=== PATIENT | female | born 1940 | race Caucasian/White ===

== ENCOUNTER 2018-10-26 09:02 | Emergency (ER) | payer MEDICARE ==
[~2018-10-26] VITALS: Ht 170.2 cm; Wt 77.1 kg
[~2018-10-26 09:02] MED LIST: ACET325 PO; ASPI325 PO; ATEN50 PO; Atenolol50 MG PO; BUDE6HFA INH; CIPR500 PO; DOCU100 PO; FOSI10 PO; GUAI600T33 PO; HYDACE10B PO; HYDCHL25 PO; IRON325 MG PO; LEVA.63IS INH; LOSA50 PO; LOVA40 PO; PRED10 PO; Prilosec Otc20 MG PO; Ventolin/Prove6.7 GM INH; Zofran Odt4 MG SL
[2018-10-26 09:32] LABS: Source, Urine Clean Catch
[2018-10-26 09:39] LABS: Bilirubin, Urine Neg (Neg); Blood, Urine 2+ (Neg); Glucose Qualitative, Urine Neg (Neg); Ketones, Urine Neg (Neg); Leukocyte Esterase, Urine 3+ (Neg); Nitrite, Urine Neg (Neg); Protein, Urine Neg (Neg); Urobilinogen, Urine NORM (Normal)
[2018-10-26 10:03] LABS: BASOPHILS ABSOLUTE AUTO 0.03 K/mm3 (0.00-0.23); BASOPHILS PERCENT AUTO 0 % (0-2); EOSINOPHILS ABSOLUTE AUTO 0.04 K/mm3 (0.00-0.68); EOSINOPHILS PERCENT AUTO 0 % (0-6); Hemoglobin 13.7 g/dL (11.5-16.0); Mean Corpuscular HGB 29.3 pg (26.0-34.0); Mean Corpuscular HGB Conc 32.6 g/dL (31.5-36.5); Mean Corpuscular Volume 90 fL (80-100); Platelet Count 193 K/mm3 (150-400); Red Blood Cell Count 4.67 M/mm3 (3.80-5.20); White Blood Cell Count 18.69 K/mm3 (4.00-11.30)
[2018-10-26 10:06] LABS: Appearance, Urine Clear (Clear); Color, Urine Yellow (P-Yellow)
[2018-10-26 10:06] LABS: Alanine Aminotransfer (ALT/SGP 25 U/L (12-78); Albumin, Blood 3.9 g/dL (3.4-5.0); Albumin/Globulin Ratio 1.4 (0.8-1.8); Alk Phos 90 U/L (50-136); Anion Gap 10 mmol/L (6-16); Aspartate Aminotrans (AST/SGOT 16 U/L (12-37); Bilirubin, Total 0.7 mg/dL (0.1-1.0); Blood Urea Nitrogen 26 mg/dL (8-24); Bun/Creatinine Ratio 32.7 (12.0-20.0); CO2, Blood 24 mmol/L (21-32); Calcium, Blood 9.6 mg/dL (8.5-10.1); Chloride, Blood 106 mmol/L (98-108); Creatinine, Blood 0.79 mg/dL (0.40-1.00); Globulin, Blood 2.8 g/dL (2.2-4.0); Glomerular Filtration Rate >60 (60-); Glucose, Blood 146 mg/dL (70-99); Potassium, Blood 3.3 mmol/L (3.5-5.5); Sodium, Blood 140 mmol/L (136-145); Total Protein, Blood 6.7 g/dL (6.4-8.2)
[2018-10-26 10:08] LABS: Bacteria Rare /hpf; Squamous Epithelial Cells Few /hpf (Few)
[2018-10-26 10:17] LABS: IMMATURE GRAN ABSOLUTE AUTO 0.07 K/mm3 (0.00-0.10); IMMATURE GRAN PERCENT AUTO 0 % (0-1); LYMPHOCYTES ABSOLUTE AUTO 12.34 K/mm3 (0.84-5.20); LYMPHOCYTES PERCENT AUTO 66 % (21-46); MONOCYTES ABSOLUTE AUTO 0.52 K/mm3 (0.16-1.47); MONOCYTES PERCENT AUTO 3 % (4-13); NEUTROPHILS ABSOLUTE AUTO 5.69 K/mm3 (1.96-9.15); NEUTROPHILS PERCENT AUTO 30 % (41-73)
[2018-10-26] MEDS ORDERED: CEPH500 PO (11:27)
== END 2018-10-26 11:47 | disposition home or self-care (01) ==
LOC: ER 09:02
PROVIDERS: Emergency Medicine
DX: N39.0 Urinary tract infection, site not specified (principal); K29.70 Gastritis, unspecified, without bleeding; Z88.8 Allergy status to other drugs, medicaments and biological substances; Z88.6 Allergy status to analgesic agent; Z88.5 Allergy status to narcotic agent; Z79.899 Other long term (current) drug therapy; I10 Essential (primary) hypertension
CPT/HCPCS: 36415; 80053; 81001; 83690; 85025; 87086; 93005; 93010; 99283-25

== ENCOUNTER 2019-12-19 00:42 | Emergency (ER) | payer MEDICARE ==
[~2019-12-19] VITALS: Ht 170.2 cm; Wt 74.4 kg
[~2019-12-19 00:42] MED LIST changes: +CEPH500 PO
[2019-12-19] MEDS ORDERED: AMLODIPINE BES2.5 MG PO (01:04)
[2019-12-19] MEDS ORDERED: LOSARTAN POTAS100 M1 PO (01:05)
[2019-12-19] MEDS ORDERED: METO50ER PO (01:06)
[2019-12-19 01:34] LABS: BASOPHILS ABSOLUTE AUTO 0.07 K/mm3 (0.00-0.23); BASOPHILS PERCENT AUTO 0 % (0-2); EOSINOPHILS ABSOLUTE AUTO 0.16 K/mm3 (0.00-0.68); EOSINOPHILS PERCENT AUTO 1 % (0-6); Hematocrit 40.4 % (33.0-51.0); Hemoglobin 12.8 g/dL (11.5-16.0); IMMATURE GRAN ABSOLUTE AUTO 0.08 K/mm3 (0.00-0.10); IMMATURE GRAN PERCENT AUTO 0 % (0-1); LYMPHOCYTES ABSOLUTE AUTO 22.97 K/mm3 (0.84-5.20); LYMPHOCYTES PERCENT AUTO 78 % (21-46); MONOCYTES ABSOLUTE AUTO 0.99 K/mm3 (0.16-1.47); MONOCYTES PERCENT AUTO 3 % (4-13); Mean Corpuscular HGB 29.2 pg (26.0-34.0); Mean Corpuscular HGB Conc 31.7 g/dL (31.5-36.5); Mean Corpuscular Volume 92 fL (80-100); Mean Platelet Volume 10.1 fL (9.1-12.4); NEUTROPHILS ABSOLUTE AUTO 5.01 K/mm3 (1.96-9.15); NEUTROPHILS PERCENT AUTO 17 % (41-73); Platelet Count 185 K/mm3 (150-400); RDW Coefficient Variation 13.7 % (11.7-14.2); RDW Standard Deviation 46.8 fL (35.1-46.3); Red Blood Cell Count 4.39 M/mm3 (3.80-5.20); White Blood Cell Count 29.28 K/mm3 (4.00-11.30)
[2019-12-19 01:56] LABS: Alanine Aminotransfer (ALT/SGP 24 U/L (12-78); Albumin, Blood 3.9 g/dL (3.4-5.0); Albumin/Globulin Ratio 1.3 (0.8-1.8); Alk Phos 95 U/L (50-136); Anion Gap 7 mmol/L (6-16); Aspartate Aminotrans (AST/SGOT 15 U/L (12-37); Bilirubin, Total 0.4 mg/dL (0.1-1.0); Blood Urea Nitrogen 29 mg/dL (8-24); CO2, Blood 27 mmol/L (21-32); Chloride, Blood 107 mmol/L (98-108); Creatinine, Blood 0.81 mg/dL (0.40-1.00); Globulin, Blood 2.9 g/dL (2.2-4.0); Glomerular Filtration Rate >60 (60-); Glucose, Blood 109 mg/dL (70-99); Potassium, Blood 3.3 mmol/L (3.5-5.5); Sodium, Blood 141 mmol/L (136-145); Total Protein, Blood 6.8 g/dL (6.4-8.2); Troponin I <0.015 ng/mL (0.000-0.040)
== END 2019-12-19 02:30 | disposition home or self-care (01) ==
LOC: ER 00:42
PROVIDERS: Emergency Medicine
DX: I10 Essential (primary) hypertension (principal); Z88.6 Allergy status to analgesic agent; Z91.09 Other allergy status, other than to drugs and biological substances; Z88.5 Allergy status to narcotic agent; Z88.8 Allergy status to other drugs, medicaments and biological substances; Z79.899 Other long term (current) drug therapy
CPT/HCPCS: 36415; 71045; 80053; 84484; 85025; 93005; 93010; 96374; 99284-25

== ENCOUNTER 2020-01-03 22:41 | Observation (INO) | payer MEDICARE, OTHER ==
[~2020-01-03] VITALS: Ht 170.2 cm; Wt 74.9 kg
[~2020-01-03 22:41] MED LIST changes: +AMLODIPINE BES2.5 MG PO; +LOSARTAN POTAS100 M1 PO; +METO50ER PO
[2020-01-03] MEDS ORDERED: AMLODIPINE BESYL5 MG PO (23:21)
[2020-01-03] MEDS ORDERED: AMBIEN5 MG PO (23:21)
[2020-01-03 23:37] LABS: BASOPHILS ABSOLUTE AUTO 0.06 K/mm3 (0.00-0.23); BASOPHILS PERCENT AUTO 0 % (0-2); EOSINOPHILS ABSOLUTE AUTO 0.06 K/mm3 (0.00-0.68); EOSINOPHILS PERCENT AUTO 0 % (0-6); Hematocrit 32.1 % (33.0-51.0); Hemoglobin 10.2 g/dL (11.5-16.0); Mean Corpuscular HGB 29.5 pg (26.0-34.0); Mean Corpuscular HGB Conc 31.8 g/dL (31.5-36.5); Mean Corpuscular Volume 93 fL (80-100); Mean Platelet Volume 10.4 fL (9.1-12.4); NRBC ABSOLUTE 0.03 K/mm3 (0.00-0.02); NRBC Auto 0.1 /100 WBC (0.0-0.2); Platelet Count 199 K/mm3 (150-400); RDW Coefficient Variation 13.8 % (11.7-14.2); RDW Standard Deviation 46.8 fL (35.1-46.3); Red Blood Cell Count 3.46 M/mm3 (3.80-5.20); White Blood Cell Count 31.42 K/mm3 (4.00-11.30)
[2020-01-03 23:38] LABS: IMMATURE GRAN ABSOLUTE AUTO 0.12 K/mm3 (0.00-0.10); IMMATURE GRAN PERCENT AUTO 0 % (0-1); LYMPHOCYTES PERCENT AUTO 68 % (21-46); MONOCYTES PERCENT AUTO 5 % (4-13); NEUTROPHILS ABSOLUTE AUTO 8.18 K/mm3 (1.96-9.15); NEUTROPHILS PERCENT AUTO 26 % (41-73)
[2020-01-03 23:58] LABS: Alanine Aminotransfer (ALT/SGP 18 U/L (12-78); Albumin, Blood 3.3 g/dL (3.4-5.0); Albumin/Globulin Ratio 1.3 (0.8-1.8); Alk Phos 68 U/L (50-136); Anion Gap 9 mmol/L (6-16); Aspartate Aminotrans (AST/SGOT 9 U/L (12-37); Bilirubin, Total 0.6 mg/dL (0.1-1.0); Blood Urea Nitrogen 70 mg/dL (8-24); Bun/Creatinine Ratio 80.2 (12.0-20.0); CO2, Blood 25 mmol/L (21-32); Calcium, Blood 9.1 mg/dL (8.5-10.1); Chloride, Blood 109 mmol/L (98-108); Creatinine, Blood 0.87 mg/dL (0.40-1.00); Globulin, Blood 2.6 g/dL (2.2-4.0); Glomerular Filtration Rate >60 (60-); Glucose, Blood 141 mg/dL (70-99); Potassium, Blood 3.6 mmol/L (3.5-5.5); Sodium, Blood 143 mmol/L (136-145); Total Protein, Blood 5.9 g/dL (6.4-8.2); Troponin I <0.015 ng/mL (0.000-0.040)
[2020-01-04] LABS: Source, Urine Voided
[2020-01-04 00:02] LABS: Bilirubin, Urine Neg (Neg); Blood, Urine Neg (Neg); Glucose Qualitative, Urine Neg (Neg); Ketones, Urine 3+ (Neg); Leukocyte Esterase, Urine 1+ (Neg); Nitrite, Urine Neg (Neg); Protein, Urine Neg (Neg); Specific Gravity, Urine 1.015 (1.003-1.022); Urobilinogen, Urine NORM (Normal)
[2020-01-04 00:04] LABS: Appearance, Urine Clear (Clear); Color, Urine Yellow (P-Yellow)
[2020-01-04 00:08] LABS: Bacteria Few /hpf; Mucus Light (0-Heavy); Red Blood Cells, Urine Not Seen /hpf (0-2); Squamous Epithelial Cells Rare /hpf (Few); White Blood Cells, Urine 0-2 /hpf (0-5)
--- NOTE | 2020-01-04 03:38 | NUR ---
ASSUMED CARE NOTE: ASSUMED CARE OF PT AT 0338, RECEVIED REPORT FROM DWAIN BELTRAN NURSE. PT IS A/OX4, ABLE TO ANSWER QUESTIONS APPROPRIATLY. PT IS IN SR WITH HR IN THE 80'S. BP STABLE. PT IS ON RA WITH SPO2 AT 94% PT DENIES COUGH, SOB, NAUSEA, VOMITING, PAIN AT THIS TIME. PT STATES SHE FEELS TENDERNESS TO RUQ. ACTIVE BOWEL TONES IN ALL FOUR QUADRANTS. PT WALKS TO THE TOILET WITH SBA. PT IS STEADY ON HER FEET, AND DENIES FEELING DIZZY. BED AT LOWEST LEVEL, CALL LIGHT WITHIN REACH. WILL CONTINUE TO MONITOR PT T/O SHIFT.
[2020-01-04 04:12] LABS: Hematocrit 30.9 % (33.0-51.0); Hemoglobin 9.8 g/dL (11.5-16.0); Mean Corpuscular HGB 29.1 pg (26.0-34.0); Mean Corpuscular HGB Conc 31.7 g/dL (31.5-36.5); Mean Corpuscular Volume 92 fL (80-100); Mean Platelet Volume 10.2 fL (9.1-12.4); Platelet Count 193 K/mm3 (150-400); RDW Coefficient Variation 13.8 % (11.7-14.2); Red Blood Cell Count 3.37 M/mm3 (3.80-5.20); White Blood Cell Count 30.46 K/mm3 (4.00-11.30)
[2020-01-04 04:18] LABS: Hematocrit 31.1 % (33.0-51.0); Hemoglobin 9.9 g/dL (11.5-16.0)
[2020-01-04 04:32] LABS: Alanine Aminotransfer (ALT/SGP 18 U/L (12-78); Albumin, Blood 3.5 g/dL (3.4-5.0); Albumin/Globulin Ratio 1.4 (0.8-1.8); Alk Phos 67 U/L (50-136); Anion Gap 6 mmol/L (6-16); Aspartate Aminotrans (AST/SGOT 14 U/L (12-37); Bilirubin, Total 0.5 mg/dL (0.1-1.0); Blood Urea Nitrogen 74 mg/dL (8-24); CO2, Blood 27 mmol/L (21-32); Calcium, Blood 9.1 mg/dL (8.5-10.1); Chloride, Blood 109 mmol/L (98-108); Globulin, Blood 2.5 g/dL (2.2-4.0); Glomerular Filtration Rate >60 (60-); Glucose, Blood 114 mg/dL (70-99); Potassium, Blood 3.6 mmol/L (3.5-5.5); Sodium, Blood 142 mmol/L (136-145)
[2020-01-04 05:31] LABS: BASOPHILS PERCENT MAN 0 % (0-2); EOSINOPHILS PERCENT MAN 0 % (0-6); LYMPHOCYTES ABSOLUTE MAN 20.71 K/mm3 (0.84-5.20); LYMPHOCYTES PERCENT MAN 68 % (21-46); MONOCYTES ABSOLUTE MAN 1.52 K/mm3 (0.16-1.47); MONOCYTES PERCENT MAN 5 % (4-13); NEUTROPHILS ABSOLUTE MAN 8.22 K/mm3 (1.96-9.15); SEG NEUTROPHILS PERCENT MAN 27 % (41-73); TOTAL CELLS COUNTED 100
--- NOTE | 2020-01-04 06:23 | NUR ---
SHIFT SUMMARY: SEE ADMIT NOTE. PT HAVING SOFT BP. PT IS CURRENLTY IN SR WITH HR IN THE 70'S. PT CONTINUES TO DENY N/V. NS RUNNING AT 75ML/HR, PROTONIX RUNNING AT 10ML/HR. SCD'S ON. WILL CONTINUE TO MONITOR PT UNTIL REPORT IS GIVEN TO ONCOMING SHIFT.
[2020-01-04 09:43] LABS: Hematocrit 27.7 % (33.0-51.0); Hemoglobin 8.8 g/dL (11.5-16.0)
--- NOTE | 2020-01-04 10:07 | NUR ---
01/04/20 Minnie Maynard History, Chart, Medications and Allergies reviewed before start of procedure. 3-LEAD EKG REVIEWED WITH PHYSICIAN PRIOR TO START OF PROCEDURE. MONITOR INTACT WITH CONTINUOUS PULSE OXIMETRY AND INTERMITTENT BP. O2 VIA N/C INTACT THROUGHOUT SEDATION/PROCEDURE. PATIENT DETERMINED TO BE ASA APPROPRIATE FOR PROPOFOL SEDATION PRIOR TO START OF PROCEDURE BY DR. WRIGHT.
--- NOTE | 2020-01-04 10:08 | NUR ---
ASSUMED CARE OF PT AT 0700. REPORT FROM ABDIRASHID RICARDO. PT SLEEPING FOR FIRST TWO HOURS OF SHIFT. A&OX 4. INDEPENDENT IN ROOM. DENIES ABD PAIN, N/V OR OTHER COMPLAINTS. ABD ROUND, SOFT NON TENDER. BT X 4. VSS. PROTONIX GTT INFUSING. DR WRIGHT ROUNDED, STATUS CHANGE TO MED s TELE. PLAN FOR ENDOSCOPY AT 1100. PT NPO, COVID SWAB COLLECTED. WILL CONTINUE TO MONITOR.
--- NOTE | 2020-01-04 11:00 | NUR ---
REPORT CALLED TO CARMEN RICARDO. PT IN ENDOSCOPY. ALL BELONGINGS TAKEN TO MEDICAL FLOOR.
[2020-01-04 15:46] LABS: Hematocrit 26.2 % (33.0-51.0); Hemoglobin 8.1 g/dL (11.5-16.0)
--- NOTE | 2020-01-04 17:51 | NUR ---
SHIFT SUMMARY: PATIENT XFR FROM ICU-03 THIS SHIFT. PT A&O X4; CALM AND COOPERATIVE WITH CARE. NO C/O PAIN OR NAUSEA SINCE ARRIVAL ON MEDICAL. VSS. PT INDEPENDENT IN ROOM. DIET ADVANCED TO FULL LIQUID AT DINNER; TOLERATING WELL. WCTM.
[2020-01-04 21:09] LABS: Hematocrit 26.1 % (33.0-51.0); Hemoglobin 8.1 g/dL (11.5-16.0)
--- NOTE | 2020-01-05 07:29 | NUR ---
01/05/20 0640 ASSISTED UP TO BR FOR VOIDING. NO BM'S THIS SHIFT. VITALS STABLE. ONLY "VERY MILD" ABDOMINAL DISCOMFORT. PROTONIX DRIP AT 10 ML/HOUR. CHEERFUL AND UNEVENTFUL NIGHT.
[2020-01-05 08:14] LABS: Hematocrit 26.1 % (33.0-51.0)
[2020-01-05] MEDS ORDERED: METO50ER PO (09:22)
--- NOTE | 2020-01-05 13:23 | NUR ---
Patient is sitting up in bed and alert. Patient immediately tells me about her belief system and that she began her worship background at age 8. Patient is a "very spiritual" person and tells me about several different situations in life where she saw miracles. Ptient tells me about her procedure and her "racing heart beat" but does not mention about Leukemia. Patient is pleasant and kind. I listen empathically, encourage self-care, reinforce helpful attitudes and practices and provide spiritual guidance and prayer. Patient responds well and seems to encourage herself as she tells the stories of the good things that happned in the difficult seasons. Patient verbalizes appreciation for the prayer. I will continue to remain available to patient and family.
[2020-01-05] MEDS ORDERED: PANT40 PO (17:14)
--- NOTE | 2020-01-05 18:17 | NUR ---
PT DISCHARGED 1744 WITH DC INSTRUCTIONS. ESCORT W/C TO FRIENDS GIVING HER A RIDE HOME. RX FAXED TO [facility]. PT AWARE OF MED CHANGES INCLUDING INSTRUCTION TO NOT TAKE ASPARIN. AND NEW PROTONIX. SENT HOME WITH BELONGINGS
[2020-02-21] MEDS ORDERED: HYDCHL25 PO (02:34)
[2020-02-21] MEDS ORDERED: LOSARTAN POTAS100 M1 PO (03:40)
[2020-02-23] MEDS ORDERED: ALMACONE SUSPE355 ML PO (14:51)
[2020-02-23] MEDS ORDERED: CARAFATE1 GM/10 M1 PO (14:53)
[2020-02-23] MEDS ORDERED: OXYC5 PO (14:54)
[2020-02-28] MEDS ORDERED: Ativan1 MG PO (22:28)
[2020-02-28] MEDS ORDERED: SENNA LAXATIVE8.6 MG PO (22:28)
[2020-02-28] MEDS ORDERED: ONDA4ODT MM (22:28)
[2020-02-28] MEDS ORDERED: Percocet 5-3251 EACH PO (22:28)
== END 2020-01-05 17:48 | disposition home or self-care (01) ==
LOC: ER 22:41 → MEDS 22:42 → ICUE 22:42 → ICUW 22:42 → ICUE 01-04 03:24 → ICUW 01-04 03:24 → ER 01-04 03:24 → ICUW 01-04 03:52 → ICUE 01-04 03:52 → MEDS 01-04 11:34
PROVIDERS: Emergency Medicine; Internal Medicine; Internal Medicine Gastroenterology; ADMIT Internal Medicine
PROC: 0DB68ZZ Excision of Stomach, Via Natural or Artificial Opening Endoscopic (ICD-10-PCS; principal; 2020-01-04 10:45)
PROC: 0W3P8ZZ Control Bleeding in Gastrointestinal Tract, Via Natural or Artificial Opening Endoscopic (ICD-10-PCS; principal; 2020-01-04 10:45)
DX: K25.0 Acute gastric ulcer with hemorrhage (principal); C16.9 Malignant neoplasm of stomach, unspecified; C91.10 Chronic lymphocytic leukemia of B-cell type not having achieved remission; K44.9 Diaphragmatic hernia without obstruction or gangrene; K22.2 Esophageal obstruction; D62 Acute posthemorrhagic anemia; I10 Essential (primary) hypertension; Z88.5 Allergy status to narcotic agent; Z88.8 Allergy status to other drugs, medicaments and biological substances; Z88.6 Allergy status to analgesic agent; Z91.041 Radiographic dye allergy status; Z79.899 Other long term (current) drug therapy
CPT/HCPCS: 36415; 71045; 74176; 80053; 81001; 83690; 84484; 85014; 85018; 85025; 87077; 87086; 87186; 88305; 88360; 93005; 93010; 96374-59; 96375; 99285-25; A9270-GY; C9113; G0378; J2405; J2704; J7030; J7050; J7120; U0002

== ENCOUNTER 2020-02-20 16:26 | Observation (INO) | payer MEDICARE ==
[~2020-02-20] VITALS: Ht 170.2 cm; Wt 73.9 kg
[~2020-02-20 16:26] MED LIST changes: +AMBIEN5 MG PO; +AMLODIPINE BESYL5 MG PO; +PANT40 PO
[2020-02-20 17:00] LABS: Hemoglobin 11.3 g/dL (11.5-16.0); Mean Corpuscular HGB 28.2 pg (26.0-34.0); Mean Corpuscular HGB Conc 31.4 g/dL (31.5-36.5); Mean Corpuscular Volume 90 fL (80-100); Mean Platelet Volume 11.3 fL (9.1-12.4); Platelet Count 217 K/mm3 (150-400); RDW Coefficient Variation 13.7 % (11.7-14.2); Red Blood Cell Count 4.01 M/mm3 (3.80-5.20); White Blood Cell Count 22.26 K/mm3 (4.00-11.30)
[2020-02-20 17:19] LABS: BASOPHILS PERCENT MAN 0 % (0-2); EOSINOPHILS PERCENT MAN 0 % (0-6); LYMPHOCYTES ABSOLUTE MAN 18.92 K/mm3 (0.84-5.20); LYMPHOCYTES PERCENT MAN 85 % (21-46); MONOCYTES PERCENT MAN 0 % (4-13); NEUTROPHILS ABSOLUTE MAN 3.33 K/mm3 (1.96-9.15); SEG NEUTROPHILS PERCENT MAN 15 % (41-73); TOTAL CELLS COUNTED 100
[2020-02-20 18:45] LABS: Albumin/Globulin Ratio 1.4 (0.8-1.8); Bilirubin, Total 0.5 mg/dL (0.1-1.0); Bun/Creatinine Ratio 22.7 (12.0-20.0); Calcium, Blood 10.2 mg/dL (8.5-10.1); Creatinine, Blood 0.97 mg/dL (0.40-1.00); Globulin, Blood 2.8 g/dL (2.2-4.0); Potassium, Blood 3.6 mmol/L (3.5-5.5); Total Protein, Blood 6.8 g/dL (6.4-8.2)
[2020-02-20] MEDS ORDERED: HYDRA25 PO (19:04)
[2020-02-21] MEDS ORDERED: HYDCHL25 PO ×2 (02:34)
[2020-02-21] MEDS ORDERED: LOSARTAN POTAS100 M1 PO ×2 (03:40)
--- NOTE | 2020-02-21 04:04 | NUR ---
SHIFT SUMMARY PT ARRIVED FROM ED AT APPROX 0215. IS A/OX4. IND IN ROOM. REPORTS PAIN AT TOLERABLE LEVEL. DENIES N/V, CP, OR SOB. IVF INFUSING PER ORDERS. REPORTS VOIDING AND HAVING SMALL BM IN ED PRIOR TO TRANFER THIS EVENING. ON CL DIET, HAD SLIGHT GI UPSET AFTER JELLO AND BROTH. PT CURRENTLY RESTING IN BED WITH CALL LIGHT IN REACH. WILL CONT TO MONITOR AND GIVE REPORT TO ONCOMING RN.
[2020-02-21 04:32] LABS: Hematocrit 34.9 % (33.0-51.0); Hemoglobin 10.9 g/dL (11.5-16.0); Mean Corpuscular HGB 28.4 pg (26.0-34.0); Mean Corpuscular HGB Conc 31.2 g/dL (31.5-36.5); Mean Corpuscular Volume 91 fL (80-100); Mean Platelet Volume 11.2 fL (9.1-12.4); NRBC ABSOLUTE 0.02 K/mm3 (0.00-0.02); NRBC Auto 0.1 /100 WBC (0.0-0.2); Platelet Count 183 K/mm3 (150-400); RDW Coefficient Variation 13.6 % (11.7-14.2); RDW Standard Deviation 45.4 fL (35.1-46.3); Red Blood Cell Count 3.84 M/mm3 (3.80-5.20); White Blood Cell Count 20.39 K/mm3 (4.00-11.30)
[2020-02-21 04:53] LABS: Albumin, Blood 3.6 g/dL (3.4-5.0); Albumin/Globulin Ratio 1.5 (0.8-1.8); Bilirubin, Total 0.5 mg/dL (0.1-1.0); Bun/Creatinine Ratio 19.8 (12.0-20.0); Calcium, Blood 9.8 mg/dL (8.5-10.1); Creatinine, Blood 0.96 mg/dL (0.40-1.00); Globulin, Blood 2.4 g/dL (2.2-4.0); Potassium, Blood 3.3 mmol/L (3.5-5.5)
[2020-02-21 05:59] LABS: BASOPHILS PERCENT MAN 0 % (0-2); EOSINOPHILS PERCENT MAN 0 % (0-6); LYMPHOCYTES ABSOLUTE MAN 16.31 K/mm3 (0.84-5.20); LYMPHOCYTES PERCENT MAN 80 % (21-46); MONOCYTES ABSOLUTE MAN 0.61 K/mm3 (0.16-1.47); MONOCYTES PERCENT MAN 3 % (4-13); NEUTROPHILS ABSOLUTE MAN 3.46 K/mm3 (1.96-9.15); SEG NEUTROPHILS PERCENT MAN 17 % (41-73); TOTAL CELLS COUNTED 100
--- NOTE | 2020-02-21 18:20 | NUR ---
SHIFT SUMMARY; A/A/OX4 DURING SHIFT. REPORTS MINIMAL NAUSEA AND ABD DISCOMFORT DURING SHIFT. ABD DISTENDED AND FIRM WITH HYPOACTIVE BT'S. INDEPENDANT IN ROOM, SPOKE WITH DR. CRONEJO WHO WILL SEE PT TOMORROW. PER DR. CORNEJO PLAN TO KEEP MEDIPORT PLACEMENT SCHEDULED ON SUNDAY WITH CHEMO STARTING. PT UPDATED. WILL CONTINUE TO MONITOR UNTIL CHANGE OF SHIFT.
--- NOTE | 2020-02-22 04:50 | NUR ---
SHIFT SUMMARY: FRANCO IS A&OX4. SHE REPORTS ADEQUATE PAIN CONTROL WITH 50 MCG FENTANYL. SHE IS INDEPENDENT IN THE ROOM, DENIES ANY DIFFICULTIES URINATING. SHE REPORTS SHE IS SCHEDULED FOR A MEDIPORT PLACEMENT ON Sunday AT 0600. VSS, NO ACUTE EVENTS OVERNIGHT. SHE IS LYING IN BED WITH HER CALL LIGHT IN REACH. WILL REPORT TO DAY SHIFT RN.
[2020-02-22 08:17] LABS: Hemoglobin 10.1 g/dL (11.5-16.0); Mean Corpuscular HGB 28.4 pg (26.0-34.0); Mean Corpuscular HGB Conc 30.6 g/dL (31.5-36.5); Mean Corpuscular Volume 93 fL (80-100); Mean Platelet Volume 11.1 fL (9.1-12.4); Platelet Count 166 K/mm3 (150-400); RDW Coefficient Variation 13.6 % (11.7-14.2); RDW Standard Deviation 46.2 fL (35.1-46.3); Red Blood Cell Count 3.56 M/mm3 (3.80-5.20); White Blood Cell Count 19.24 K/mm3 (4.00-11.30)
[2020-02-22 08:34] LABS: Anion Gap 4 mmol/L (6-16); Blood Urea Nitrogen 13 mg/dL (8-24); Bun/Creatinine Ratio 15.3 (12.0-20.0); CO2, Blood 27 mmol/L (21-32); Calcium, Blood 9.1 mg/dL (8.5-10.1); Chloride, Blood 112 mmol/L (98-108); Creatinine, Blood 0.85 mg/dL (0.40-1.00); Glomerular Filtration Rate >60 (60-); Glucose, Blood 88 mg/dL (70-99); Potassium, Blood 3.5 mmol/L (3.5-5.5); Sodium, Blood 143 mmol/L (136-145)
--- NOTE | 2020-02-22 16:55 | NUR ---
SUMMARY NO ACUTE CHANGES NOTED THROUGH THE DAY. PT C/O MILD GAS PAIN/BLOATING, SHE STATES IT IMPROVED THROUGH THE NIGHT BUT HAS RETURNED THIS EVENING, MALOXX,TYLENOL & ZOFRAN WERE GIVEN UPUN REQUEST. PT IS VOIDING WNL. TOLERATING CLEAR LIQUIDS WITH NO NAUSEA. PT HAS AMBULATED IN THE HALLS. CALL LIGHT IN REACH.
--- NOTE | 2020-02-23 05:05 | NUR ---
SHIFT SUMMARY: VSS, NO ACUTE CHANGES OVERNIGHT. SHE WAS MADE NPO AT MIDNIGHT FOR THE MEDIPORT PLACEMENT THIS MORNING. SHE IS INDEPENDENT IN THE ROOM. SHE IS LYING IN BED WITH THE CALL LIGHT IN REACH. WILL REPORT TO DAY SHIFT RN.
--- NOTE | 2020-02-23 07:39 | NUR ---
"DAY SURGERY RN | TO OR BOTH DOCTORS AND SOYBEAN GROWER HAVE SEEN PATIENT. REPORT TO ADEOLA RICARDO. NO ISSUES. TO OR."
--- NOTE | 2020-02-23 08:15 | NUR ---
02/23/20 0814 Arabella Shields ALL COUNTS CORRECT.
[2020-02-23] MEDS ORDERED: ALMACONE SUSPE355 ML PO ×2 (14:51)
[2020-02-23] MEDS ORDERED: CARAFATE1 GM/10 M1 PO ×2 (14:53)
[2020-02-23] MEDS ORDERED: OXYC5 PO ×2 (14:54)
--- NOTE | 2020-02-23 16:15 | NUR ---
DISCHARGE PT EXCITED FOR DC HOME. TOLERATED FULL LQ TRAY. STAYED FOR 1 HOUR POST MEAL. NO N/V. NO ABD PAIN. NO CRAMPING. PASSING GAS. STRESSED IMPORTANCE OF EASING INTO DIET. PLANS FOR SOFT OATMEAL AND FLUIDS TONIGHT.
[2020-02-28] MEDS ORDERED: Ativan1 MG PO (22:28)
[2020-02-28] MEDS ORDERED: SENNA LAXATIVE8.6 MG PO (22:28)
[2020-02-28] MEDS ORDERED: Percocet 5-3251 EACH PO (22:28)
[2020-02-28] MEDS ORDERED: ONDA4ODT MM (22:28)
== END 2020-02-23 16:10 | disposition home or self-care (01) ==
LOC: ER 16:26 → SURS 16:27
PROVIDERS: Internal Medicine; Physician Assistant; Surgery; ADMIT Internal Medicine
PROC: 02HV33Z Insertion of Infusion Device into Superior Vena Cava, Percutaneous Approach (ICD-10-PCS; principal; 2020-02-23 07:30)
PROC: B518ZZA Fluoroscopy of Superior Vena Cava, Guidance (ICD-10-PCS; principal; 2020-02-23 07:30)
DX: K31.1 Adult hypertrophic pyloric stenosis (principal); C16.0 Malignant neoplasm of cardia; E86.0 Dehydration; I10 Essential (primary) hypertension; K21.9 Gastro-esophageal reflux disease without esophagitis; Z88.5 Allergy status to narcotic agent; Z88.6 Allergy status to analgesic agent; Z88.8 Allergy status to other drugs, medicaments and biological substances; Z79.899 Other long term (current) drug therapy
CPT/HCPCS: 36415; 74018; 74176; 80048; 80053; 83605; 83690; 85025; 85027; 96361; 96372; 96374; 96375; 96376; 99285-25; A9270; A9270-GY; C1788; C9113; G0378; J0690; J1642; J1650; J2250; J2370; J2405; J2704; J3010; J7030; J7120

== ENCOUNTER 2020-02-23 22:28 | Emergency (ER) | payer MEDICARE ==
[~2020-02-23] VITALS: Ht 170.2 cm; Wt 73.0 kg
[~2020-02-23 22:28] MED LIST changes: +ALMACONE SUSPE355 ML PO; +CARAFATE1 GM/10 M1 PO; +HYDRA25 PO; +OXYC5 PO
[2020-02-24 00:10] LABS: BASOPHILS ABSOLUTE AUTO 0.03 K/mm3 (0.00-0.23); BASOPHILS PERCENT AUTO 0 % (0-2); EOSINOPHILS ABSOLUTE AUTO 0.15 K/mm3 (0.00-0.68); EOSINOPHILS PERCENT AUTO 1 % (0-6); Hematocrit 37.4 % (33.0-51.0); Hemoglobin 11.7 g/dL (11.5-16.0); Mean Corpuscular HGB 28.3 pg (26.0-34.0); Mean Corpuscular HGB Conc 31.3 g/dL (31.5-36.5); Mean Corpuscular Volume 91 fL (80-100); Mean Platelet Volume 11.4 fL (9.1-12.4); Platelet Count 183 K/mm3 (150-400); RDW Coefficient Variation 13.6 % (11.7-14.2); RDW Standard Deviation 45.1 fL (35.1-46.3); Red Blood Cell Count 4.13 M/mm3 (3.80-5.20); White Blood Cell Count 20.83 K/mm3 (4.00-11.30)
[2020-02-24 00:11] LABS: IMMATURE GRAN ABSOLUTE AUTO 0.07 K/mm3 (0.00-0.10); IMMATURE GRAN PERCENT AUTO 0 % (0-1); LYMPHOCYTES ABSOLUTE AUTO 13.56 K/mm3 (0.84-5.20); LYMPHOCYTES PERCENT AUTO 65 % (21-46); MONOCYTES ABSOLUTE AUTO 0.93 K/mm3 (0.16-1.47); MONOCYTES PERCENT AUTO 5 % (4-13); NEUTROPHILS ABSOLUTE AUTO 6.09 K/mm3 (1.96-9.15); NEUTROPHILS PERCENT AUTO 29 % (41-73)
[2020-02-24 00:48] LABS: Alanine Aminotransfer (ALT/SGP 20 U/L (12-78); Albumin, Blood 3.6 g/dL (3.4-5.0); Albumin/Globulin Ratio 1.2 (0.8-1.8); Alk Phos 96 U/L (50-136); Anion Gap 8 mmol/L (6-16); Aspartate Aminotrans (AST/SGOT 13 U/L (12-37); Bilirubin, Total 0.5 mg/dL (0.1-1.0); Blood Urea Nitrogen 11 mg/dL (8-24); Bun/Creatinine Ratio 11.9 (12.0-20.0); CO2, Blood 27 mmol/L (21-32); Calcium, Blood 9.2 mg/dL (8.5-10.1); Chloride, Blood 106 mmol/L (98-108); Creatinine, Blood 0.93 mg/dL (0.40-1.00); Globulin, Blood 2.9 g/dL (2.2-4.0); Glomerular Filtration Rate >60 (60-); Glucose, Blood 123 mg/dL (70-99); Potassium, Blood 2.9 mmol/L (3.5-5.5); Sodium, Blood 141 mmol/L (136-145); Total Protein, Blood 6.5 g/dL (6.4-8.2)
[2020-02-28] MEDS ORDERED: SENNA LAXATIVE8.6 MG PO (22:28)
[2020-02-28] MEDS ORDERED: Percocet 5-3251 EACH PO (22:28)
[2020-02-28] MEDS ORDERED: ONDA4ODT MM (22:28)
[2020-02-28] MEDS ORDERED: Ativan1 MG PO (22:28)
== END 2020-02-24 01:45 | disposition home or self-care (01) ==
LOC: ER 22:28
PROVIDERS: Emergency Medicine
DX: R10.13 Epigastric pain (principal); Z88.8 Allergy status to other drugs, medicaments and biological substances; Z88.5 Allergy status to narcotic agent; Z88.6 Allergy status to analgesic agent; Z91.09 Other allergy status, other than to drugs and biological substances; Z79.899 Other long term (current) drug therapy; I10 Essential (primary) hypertension
CPT/HCPCS: 80053; 83690; 85025; 99284

== ENCOUNTER 2020-03-28 16:22 | Emergency (ER) | payer MEDICARE ==
[~2020-03-28] VITALS: Ht 170.2 cm; Wt 72.6 kg
[~2020-03-28 16:22] MED LIST changes: +Ativan1 MG PO; +ONDA4ODT MM; -OXYC5 PO; +Percocet 5-3251 EACH PO; +SENNA LAXATIVE8.6 MG PO
[2020-03-28 17:30] LABS: BASOPHILS ABSOLUTE AUTO 0.01 K/mm3 (0.00-0.23); BASOPHILS PERCENT AUTO 0 % (0-2); EOSINOPHILS ABSOLUTE AUTO 0.08 K/mm3 (0.00-0.68); EOSINOPHILS PERCENT AUTO 1 % (0-6); Hemoglobin 11.7 g/dL (11.5-16.0); Mean Corpuscular HGB 27.4 pg (26.0-34.0); Mean Corpuscular HGB Conc 32.5 g/dL (31.5-36.5); Mean Corpuscular Volume 84 fL (80-100); Mean Platelet Volume 11.7 fL (9.1-12.4); Platelet Count 163 K/mm3 (150-400); RDW Coefficient Variation 14.6 % (11.7-14.2); RDW Standard Deviation 44.3 fL (35.1-46.3); Red Blood Cell Count 4.27 M/mm3 (3.80-5.20); White Blood Cell Count 10.06 K/mm3 (4.00-11.30)
[2020-03-28 17:32] LABS: IMMATURE GRAN ABSOLUTE AUTO 0.02 K/mm3 (0.00-0.10); IMMATURE GRAN PERCENT AUTO 0 % (0-1); LYMPHOCYTES ABSOLUTE AUTO 7.46 K/mm3 (0.84-5.20); LYMPHOCYTES PERCENT AUTO 74 % (21-46); MONOCYTES ABSOLUTE AUTO 0.13 K/mm3 (0.16-1.47); MONOCYTES PERCENT AUTO 1 % (4-13); NEUTROPHILS ABSOLUTE AUTO 2.36 K/mm3 (1.96-9.15); NEUTROPHILS PERCENT AUTO 23 % (41-73)
[2020-03-28 17:49] LABS: Alanine Aminotransfer (ALT/SGP 26 U/L (12-78); Albumin, Blood 3.3 g/dL (3.4-5.0); Albumin/Globulin Ratio 1.3 (0.8-1.8); Alk Phos 92 U/L (50-136); Anion Gap 10 mmol/L (6-16); Aspartate Aminotrans (AST/SGOT 19 U/L (12-37); Bilirubin, Total 0.7 mg/dL (0.1-1.0); Blood Urea Nitrogen 22 mg/dL (8-24); Bun/Creatinine Ratio 35.5 (12.0-20.0); CO2, Blood 31 mmol/L (21-32); Calcium, Blood 9.2 mg/dL (8.5-10.1); Chloride, Blood 102 mmol/L (98-108); Creatinine, Blood 0.62 mg/dL (0.40-1.00); Globulin, Blood 2.5 g/dL (2.2-4.0); Glomerular Filtration Rate >60 (60-); Glucose, Blood 120 mg/dL (70-99); Sodium, Blood 143 mmol/L (136-145); Total Protein, Blood 5.8 g/dL (6.4-8.2)
[2020-03-28] MEDS ORDERED: POTA20PAC PO (18:46)
[2020-03-30] MEDS ORDERED: METO50ER PO (12:25)
[2020-03-30] MEDS ORDERED: OXYC5 PO (12:26)
[2020-03-30] MEDS ORDERED: OMEP20ER PO (12:27)
[2020-03-30] MEDS ORDERED: Ativan1 MG PO (12:28)
[2020-03-30] MEDS ORDERED: Metoclopramide10 MG PO (12:28)
[2020-03-30] MEDS ORDERED: ZOFRAN8 MG PO (12:29)
[2020-03-30] MEDS ORDERED: LOVASTATIN40 MG PO (12:30)
[2020-03-30] MEDS ORDERED: HYDCHL25 PO (12:30)
[2020-03-30] MEDS ORDERED: AMLODIPINE BESYL5 MG PO (12:31)
[2020-03-30] MEDS ORDERED: LOSARTAN POTAS100 M1 PO (12:48)
== END 2020-03-28 19:35 | disposition home or self-care (01) ==
LOC: ER 16:22
PROVIDERS: Physician Assistant
DX: R11.2 Nausea with vomiting, unspecified (principal); T45.1X5A Adverse effect of antineoplastic and immunosuppressive drugs, initial encounter; E87.6 Hypokalemia; R10.10 Upper abdominal pain, unspecified; G89.29 Other chronic pain; F41.9 Anxiety disorder, unspecified; I11.0 Hypertensive heart disease with heart failure; I50.9 Heart failure, unspecified; K21.9 Gastro-esophageal reflux disease without esophagitis; Z88.8 Allergy status to other drugs, medicaments and biological substances; Z88.6 Allergy status to analgesic agent; Z88.5 Allergy status to narcotic agent; Z91.041 Radiographic dye allergy status; Z79.899 Other long term (current) drug therapy
CPT/HCPCS: 36415; 80053; 83690; 85025; 96361; 96374; 96375; 99284-25; J2060; J2550; J7030

== ENCOUNTER 2020-10-19 12:27 | Inpatient (IN) | payer MEDICARE ==
[~2020-10-19] VITALS: Ht 170.2 cm; Wt 56.5 kg
[~2020-10-19 12:27] MED LIST changes: +DRON2.5 PO; +LOVASTATIN40 MG PO; +METO10 PO; +OMEP20ER PO; +OXYC5 PO; +POTA20PAC PO; +PROBIOTIC PO; +Prednisone10 MG PO; +ZOFRAN8 MG PO
[2020-10-19] MEDS ORDERED: HYDCHL25 PO ×2 (12:54→16:07)
[2020-10-19] MEDS ORDERED: PRED1 PO (12:54)
[2020-10-19 13:57] LABS: Alanine Aminotransfer (ALT/SGP 14 U/L (12-78); Albumin, Blood 2.6 g/dL (3.4-5.0); Albumin/Globulin Ratio 0.6 (0.8-1.8); Alk Phos 105 U/L (50-136); Anion Gap 7 mmol/L (6-16); Aspartate Aminotrans (AST/SGOT 11 U/L (12-37); Bilirubin, Total 0.6 mg/dL (0.1-1.0); Blood Urea Nitrogen 33 mg/dL (8-24); Bun/Creatinine Ratio 53.4 (12.0-20.0); CO2, Blood 28 mmol/L (21-32); Calcium, Blood 9.1 mg/dL (8.5-10.1); Chloride, Blood 110 mmol/L (98-108); Creatinine, Blood 0.62 mg/dL (0.40-1.00); Glomerular Filtration Rate >60 (60-); Glucose, Blood 114 mg/dL (70-99); Potassium, Blood 3.3 mmol/L (3.5-5.5); Sodium, Blood 145 mmol/L (136-145); Total Protein, Blood 6.6 g/dL (6.4-8.2); Troponin I <0.015 ng/mL (0.000-0.040)
[2020-10-19 14:03] LABS: Hematocrit 32.5 % (33.0-51.0); Hemoglobin 10.2 g/dL (11.5-16.0); Mean Corpuscular HGB 26.8 pg (26.0-34.0); Mean Corpuscular HGB Conc 31.4 g/dL (31.5-36.5); Mean Corpuscular Volume 85 fL (80-100); Mean Platelet Volume 10.9 fL (9.1-12.4); Platelet Count 290 K/mm3 (150-400); RDW Coefficient Variation 17.6 % (11.7-14.2); RDW Standard Deviation 54.4 fL (35.1-46.3); Red Blood Cell Count 3.81 M/mm3 (3.80-5.20); White Blood Cell Count 21.91 K/mm3 (4.00-11.30)
[2020-10-19 15:38] LABS: BASOPHILS PERCENT MAN 0 % (0-2); EOSINOPHILS PERCENT MAN 0 % (0-6); LYMPHOCYTES % ATYPICAL MANUAL 9 % (0-0); LYMPHOCYTES ABSOLUTE MAN 7.23 K/mm3 (0.84-5.20); LYMPHOCYTES PERCENT MAN 24 % (21-46); MONOCYTES ABSOLUTE MAN 0.87 K/mm3 (0.16-1.47); MONOCYTES PERCENT MAN 4 % (4-13); SEG NEUTROPHILS PERCENT MAN 63 % (41-73); TOTAL CELLS COUNTED 100
[2020-10-19 16:06] LABS: International Normalized Ratio 1.02
[2020-10-19] MEDS ORDERED: AMLODIPINE BES2.5 MG PO (16:07)
[2020-10-19 16:37] LABS: Influenza A, PCR NEGATIVE (NEGATIVE); Influenza B, PCR NEGATIVE (NEGATIVE); Resp Syncytial Virus, PCR NEGATIVE (NEGATIVE); SARS-Cov-2 (COVID-19) PCR, MMC NEGATIVE (NEGATIVE)
[2020-10-20 03:35] LABS: BASOPHILS ABSOLUTE AUTO 0.04 K/mm3 (0.00-0.23); BASOPHILS PERCENT AUTO 0 % (0-2); EOSINOPHILS ABSOLUTE AUTO 0.08 K/mm3 (0.00-0.68); EOSINOPHILS PERCENT AUTO 0 % (0-6); Hemoglobin 9.5 g/dL (11.5-16.0); IMMATURE GRAN ABSOLUTE AUTO 0.13 K/mm3 (0.00-0.10); IMMATURE GRAN PERCENT AUTO 1 % (0-1); LYMPHOCYTES ABSOLUTE AUTO 11.18 K/mm3 (0.84-5.20); LYMPHOCYTES PERCENT AUTO 56 % (21-46); MONOCYTES PERCENT AUTO 5 % (4-13); Mean Corpuscular HGB 26.6 pg (26.0-34.0); Mean Corpuscular HGB Conc 29.7 g/dL (31.5-36.5); Mean Platelet Volume 10.7 fL (9.1-12.4); NEUTROPHILS ABSOLUTE AUTO 7.45 K/mm3 (1.96-9.15); NEUTROPHILS PERCENT AUTO 38 % (41-73); Platelet Count 256 K/mm3 (150-400); RDW Coefficient Variation 17.6 % (11.7-14.2); Red Blood Cell Count 3.57 M/mm3 (3.80-5.20); White Blood Cell Count 19.88 K/mm3 (4.00-11.30)
[2020-10-20 03:36] LABS: Mean Corpuscular Volume 90 fL (80-100)
--- NOTE | 2020-10-20 03:43 | NUR ---
PARK ATTENDANT SUMMARY PT ARRIVED TO THE UNITW MINIMAL SOB ON 2L NC. PT IS AXO X4. PT'S ABDOMEN IS DISTENDED WHICH IS HER BASELINE PER PT BUT DENIED ANY PAIN OR NAUSEA. PT REQUESTED SOMETHING FOR ANXIETY AND WAS GIVEN XANAX PER EMAR AND THEN SHE SLEPT COMFORTABLY FOR MOST OF THE SHIFT. O2 SATS >94% ON 1-2L NC. DENIES ANY CP OR PRESSURE THIS SHIFT. VSS, WCTM.
[2020-10-20 03:53] LABS: Lactate Dehydrogenase (Ld),Bld 138 U/L (100-240)
[2020-10-20 03:54] LABS: Anion Gap 4 mmol/L (6-16); Blood Urea Nitrogen 35 mg/dL (8-24); Bun/Creatinine Ratio 46.6 (12.0-20.0); CO2, Blood 31 mmol/L (21-32); Calcium, Blood 8.9 mg/dL (8.5-10.1); Chloride, Blood 111 mmol/L (98-108); Creatinine, Blood 0.75 mg/dL (0.40-1.00); Glomerular Filtration Rate >60 (60-); Glucose, Blood 104 mg/dL (70-99); Potassium, Blood 3.4 mmol/L (3.5-5.5); Sodium, Blood 146 mmol/L (136-145)
[2020-10-20 04:12] LABS: BAND PERCENT MAN 1 % (0-8); BASOPHILS PERCENT MAN 0 % (0-2); EOSINOPHILS ABSOLUTE MAN 0.19 K/mm3 (0.00-0.68); EOSINOPHILS PERCENT MAN 1 % (0-6); LYMPHOCYTES ABSOLUTE MAN 11.13 K/mm3 (0.84-5.20); LYMPHOCYTES PERCENT MAN 56 % (21-46); MONOCYTES ABSOLUTE MAN 0.79 K/mm3 (0.16-1.47); MONOCYTES PERCENT MAN 4 % (4-13); NEUTROPHILS ABSOLUTE MAN 6.36 K/mm3 (1.96-9.15); SEG NEUTROPHILS PERCENT MAN 31 % (41-73); TOTAL CELLS COUNTED 100
[2020-10-20 04:13] LABS: OTHER CELL PERCENT MAN 7 % (0-0)
--- NOTE | 2020-10-20 09:00 | NUR ---
UPDATE; HEART RATE INCREASED TO 140, APPEARS LABORED AND SOB, USING ACCESSORY MUSCLES TO BREATH. PROVIDED NOTIFIED, RT TO ROOM, BIPAP STARTED. PENDING THROCENTESIS FOR EFFUSION. PO MEDS AND FOOD HELD DUE TO SOB, IV LOPRESSOR ORDERED BY PROVIDER FOR INCREASED HEART RATE. WILL MEDICATE AND CONTINUE TO MONITOR.
--- NOTE | 2020-10-20 13:26 | NUR ---
echocardiogram completed.
[2020-10-20 15:04] LABS: Automated BF RBC Count 0.797 M/mm3 (0-0); Automated BF WBC Count 7.534 K/mm3 (0-999); Body Fluid WBC Count 7534 /mm3 (0-999); RBC Count, Body Fluid 797000 /mm3 (0-0)
--- NOTE | 2020-10-20 15:15 | NUR ---
PT RETURNED FROM THORACENTESIS. SITTING UP IN BED, APPEARS TO BE BREATHING EASIER. O2 >92% ON 4L. TALKING, SPEAKING IN FULL SENTENCES. 1L TAKEN OFF AT THORACENTESIS.
[2020-10-20 15:16] LABS: pH, Body Fluid 7.5
[2020-10-20 15:24] LABS: Amylase, Body Fluid 40 U/L; Glucose, Body Fluid 50 mg/dL; Lactate Dehydrogenase, Body Fl 979 U/L; Triglycerides, Body Fluid 46 mg/dL
--- NOTE | 2020-10-20 16:13 | NUR ---
Partial echocardiogram completed.
[2020-10-20 16:15] LABS: Appearance, Body Fluid Bloody (Clear); Color, Body Fluid Red (None-Yellow); Total Cell Count, Body Fluid 100
--- NOTE | 2020-10-20 17:31 | NUR ---
END OF SHIFT NOTE: TOUR LEADER WORKING WITH DERIC VELAZQUEZ RN. ASSUMED CARE FOR PATIENT AT APPROXIMATELY 0700. BEFORE BREAKFAST JEANNE WAS SITTING UP TALKING IN FULL SENTENCES AND APPEARED COMFORTABLE. SHORTLY AFTER AROUND 0815 PATIENT STARTED TO HAVE INCREASED WORK OF BREATHING, SHE WAS TACHYPNEIC, RESTLESS, AND STATES THAT SHE COULDN'T EAT HER BREAKFAST BECAUSE SHE FELT LIKE SHE COULD NOT BREATH. THE PATIENT'S SATURATIONS WERE STILL ABOVE >90% ON 4L NC. RT WAS CALLED AND SHE WAS PUT ON BIPAP. PATIENT WAS TAKEN OFF OF BIPAP AND PUT ON 6L NC AND WAS TAKEN TO IMAGING FOR HER THORACENTESIS. THEY TOOK OFF APPROXIMATELY 1L. AFTER PROCEDURE THE PATIENT SEEMED TO IMPROVE. SHE WAS SITTING UP, SPEAKING IN FULL SENTENCES, AND WAS COMFORTABLE ON 4L NC. SHE STATED THAT SHE WAS FEELING A LOT BETTER AND REQUESTED FOOD. PT HAD AN ECHO BEFORE THORACENTESIS AND AFTER. PT IS CURRENTLY RESTING COMFORTABLY ON 4L NC. BED IS IN LOWEST POSITION AND CALL LIGHT IS IN REACH. PT DOES NOT HAVE ANY ACUTE COMPALINTS RIGHT NOW.
--- NOTE | 2020-10-20 17:43 | NUR ---
PT WAS TAKEN OFF OF BIPAP AROUND 1345 FOR HER THORACENTESIS AND WAS PUT ON 6L NC. AFTER HER PROCEDURE SHE WAS PUT 4L NC AND HER OXYGEN SATS HAVE BEEN >93%.
--- NOTE | 2020-10-20 17:44 | NUR ---
Pt lying in hospital bed, resp even and unlabored. 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 She is not currently undergoing treatment for it. However, she did experience SOB and weakness while at home. She was admitted to the hospital after being found to have ascites, and 1 liter fluid was drained from her abdomen today. They are planning another fluid drain tomorrow. Plan to see pt tomorrow.
--- NOTE | 2020-10-20 18:35 | NUR ---
STUDENT NURSE ASSESMENT REVIEWED, AGREED WITH FINDINGS.
--- NOTE | 2020-10-21 03:41 | NUR ---
EPIC BEACON ANALYST SUMMARY PT IS AXO X4. PT REPORTS FEELING MUCH BETTER SINCE RECIEVING THE THORECENTSIS AND FEELS MUCH LESS SOB. PT SLEPT FOR MOST OF THE SHIFT W SCD'S ON. PT HAD A 10 BEAT RUN OF VTACH WHILE SLEEPING AROUND 0230 IN THE AM. O2 SATS >94% ON 3L NC. VSS, WCTM.
[2020-10-21 08:46] LABS: Hematocrit 31.8 % (33.0-51.0); Hemoglobin 9.6 g/dL (11.5-16.0); Mean Corpuscular HGB 26.7 pg (26.0-34.0); Mean Corpuscular HGB Conc 30.2 g/dL (31.5-36.5); Mean Corpuscular Volume 88 fL (80-100); Platelet Count 263 K/mm3 (150-400); RDW Coefficient Variation 17.7 % (11.7-14.2); RDW Standard Deviation 56.3 fL (35.1-46.3); White Blood Cell Count 23.39 K/mm3 (4.00-11.30)
[2020-10-21 09:04] LABS: Alanine Aminotransfer (ALT/SGP 11 U/L (12-78); Albumin, Blood 2.4 g/dL (3.4-5.0); Albumin/Globulin Ratio 0.7 (0.8-1.8); Alk Phos 101 U/L (50-136); Anion Gap 4 mmol/L (6-16); Aspartate Aminotrans (AST/SGOT 14 U/L (12-37); Bilirubin, Total 0.6 mg/dL (0.1-1.0); Blood Urea Nitrogen 36 mg/dL (8-24); Bun/Creatinine Ratio 53.9 (12.0-20.0); CO2, Blood 32 mmol/L (21-32); Calcium, Blood 9.1 mg/dL (8.5-10.1); Chloride, Blood 110 mmol/L (98-108); Creatinine, Blood 0.67 mg/dL (0.40-1.00); Globulin, Blood 3.6 g/dL (2.2-4.0); Glomerular Filtration Rate >60 (60-); Glucose, Blood 117 mg/dL (70-99); Potassium, Blood 3.7 mmol/L (3.5-5.5); Sodium, Blood 146 mmol/L (136-145)
[2020-10-21 10:37] LABS: BASOPHILS PERCENT MAN 0 % (0-2); EOSINOPHILS PERCENT MAN 0 % (0-6); LYMPHOCYTES ABSOLUTE MAN 15.43 K/mm3 (0.84-5.20); LYMPHOCYTES PERCENT MAN 66 % (21-46); MONOCYTES ABSOLUTE MAN 1.16 K/mm3 (0.16-1.47); MONOCYTES PERCENT MAN 5 % (4-13); NEUTROPHILS ABSOLUTE MAN 6.78 K/mm3 (1.96-9.15); SEG NEUTROPHILS PERCENT MAN 29 % (41-73); TOTAL CELLS COUNTED 100
--- NOTE | 2020-10-21 13:41 | NUR ---
Spiritual care visit conducted. Patient immediately recognizes me from prior visits to the hospital. Patient tells me that she does not think that she is "going to make it." She then states, "I'm falling apart." We discuss and dying and explore sources of hope and meaning. Patient seams angry and overwhelmed and my attempts to explore those emotions is met with a change in topic. Patient has been open to prayer in the past but today she is not. She asks me to try again tomorrow, which I will, schedule permitting. I will continue to remain available to patient and family.
--- NOTE | 2020-10-21 16:39 | NUR ---
PT BACK FROM PARACENTESIS, WHERE THEY REMOVED ABOUT 2.5L. PT EXPERIENCED SOME NAUSEA AND ABDOMINAL DISCOMFORT SHORTLY AFTER. PT IS CURRENTLY LYING IN BED AND HER NAUSEA AND DISCOMFORT HAS SUBSIDED. PT BLOOD PRESSURE IS CURRENTLY STABLE AND SHE IS >93% ON 2L.
--- NOTE | 2020-10-21 17:39 | NUR ---
REMOVED MEPILEX PAD REMOVED FROM PREVIOUS SHIFT, SOME REDNESS TO THE COCCYX BUT NO SKIN BREAKDOWN. PT IS ABLE TO REPOSITION HERSELF IN HER BED INDEPENDENTLY. PATIETN DENIES ANY PAIN TO THE AREA.
--- NOTE | 2020-10-21 17:51 | NUR ---
PT REPORTS TO HAVING SOME LUMBER BACK PAIN, SHE RATES IT A 2/10, OFFERED 650MG OF TYLENOL BUT PATIENT STATED THAT SHE WOULD LIKE TO JUST TRY 325MG TO STARTED AND WILL REQUEST THE OTHER 325MG IF NEEDED. PATIENT WAS GIVEN A HEATING PAD. WILL REASSESS PATIENTS PAIN.
--- NOTE | 2020-10-21 18:21 | NUR ---
END OF SHIFT NOTE: CEILING INSULATION BLOWER WORKING WITH DERIC VELAZQUEZ RN. ASSUMED CARE FOR PATIENT AROUND 0700. PT IS ALERT AND ORIENTED X4. SHE HAS BEEN ON TELE AND HAS BEEN SINUS TACHYCARDIA IN THE 100-110S. SHE IS >93% ON 2L NC. THIS MORNING PATIENT WAS HAVING NEW ABDOMINAL DISTENTION WITH ABDOMINAL DISCOMFORT. SHE DID NOT WANT TO EAT BREAKFAST OR LUNCH. SHE DID DRINK JUICE. SHE REPORTED THAT SHE HAD NOT URINATED SINCE LAST NIGHT, BLADDER SCANNER WAS DONE AND IT SHOWED >800. BELTRAN CATHETER WAS ATTEMPTED BUT WAS NOT LETTING OUT A LOT OF URINE SO IT WAS DC. THE PATIENT HAD AN ABDOMINAL CT THAT SHOWED ASCITES AND THE PATIENT WENT TO IMAGING FOR A PARACENTESIS WHERE THEY DRAINED ABOUT 2.6L. SHORTLY AFTER THE PROCEDURE THE PATIENT HAD COMPLAINTS OF DIFFUSE ABDOMINAL PAIN AND NAUSEA. NO VOMITING. PT ALSO IS NOW HAVING SOME LUMBAR BACK PAIN THAT SHE RATES A 2/10. SHE WAS GIVEN 325MG OF TYLENOL INSTEAD OF THE 650MG. PT REPORTED THAT SHE WANTED TO START WITH 325MG. PT REPORTS SHE IS HAVING IMPROVEMENT WITH HER PAIN AND HER NAUSEA HAS SUBSIDED FOR NOW. MEPLEX ON COCCYX WAS REPLACED, AREA WAS RED BUT NO SKIN BREAK DOWN, PATIENT DENIES PAIN TO THE AREA. PT IS CURRENTLY RESTING PAIN, CALL LIGHT IN REACH, AND BED IS IN THE LOWEST POSITION.
[2020-10-22 03:39] LABS: Hematocrit 30.3 % (33.0-51.0); Hemoglobin 9.2 g/dL (11.5-16.0); Mean Corpuscular HGB 26.6 pg (26.0-34.0); Mean Corpuscular HGB Conc 30.4 g/dL (31.5-36.5); Mean Corpuscular Volume 88 fL (80-100); Mean Platelet Volume 11.1 fL (9.1-12.4); Platelet Count 256 K/mm3 (150-400); RDW Coefficient Variation 17.4 % (11.7-14.2); RDW Standard Deviation 55.4 fL (35.1-46.3); Red Blood Cell Count 3.46 M/mm3 (3.80-5.20); White Blood Cell Count 26.13 K/mm3 (4.00-11.30)
[2020-10-22 03:56] LABS: Alanine Aminotransfer (ALT/SGP 12 U/L (12-78); Albumin, Blood 2.4 g/dL (3.4-5.0); Albumin/Globulin Ratio 0.7 (0.8-1.8); Alk Phos 95 U/L (50-136); Anion Gap 4 mmol/L (6-16); Aspartate Aminotrans (AST/SGOT 12 U/L (12-37); Bilirubin, Total 0.3 mg/dL (0.1-1.0); Blood Urea Nitrogen 37 mg/dL (8-24); Bun/Creatinine Ratio 50.5 (12.0-20.0); CO2, Blood 31 mmol/L (21-32); Calcium, Blood 8.9 mg/dL (8.5-10.1); Chloride, Blood 110 mmol/L (98-108); Creatinine, Blood 0.73 mg/dL (0.40-1.00); Globulin, Blood 3.6 g/dL (2.2-4.0); Glomerular Filtration Rate >60 (60-); Glucose, Blood 121 mg/dL (70-99); Potassium, Blood 3.8 mmol/L (3.5-5.5); Sodium, Blood 145 mmol/L (136-145)
--- NOTE | 2020-10-22 05:37 | NUR ---
shift summary pt rested well through night. alert and oriented, able to make needs known. cooperative with plan of care. tele nsr/sinus tach. sats >90% on 2lmc. stand by assist to bathroom - voiding adequately. no bm. c/o abd discomfort - see emar. skin intact. vss. call light within reach, bed in lowest position. will continue to monitor.
[2020-10-22 06:02] LABS: BASOPHILS PERCENT MAN 0 % (0-2); EOSINOPHILS PERCENT MAN 0 % (0-6); LYMPHOCYTES ABSOLUTE MAN 16.72 K/mm3 (0.84-5.20); LYMPHOCYTES PERCENT MAN 64 % (21-46); MONOCYTES ABSOLUTE MAN 0.52 K/mm3 (0.16-1.47); MONOCYTES PERCENT MAN 2 % (4-13); NEUTROPHILS ABSOLUTE MAN 8.88 K/mm3 (1.96-9.15); SEG NEUTROPHILS PERCENT MAN 34 % (41-73); TOTAL CELLS COUNTED 100
--- NOTE | 2020-10-22 07:57 | NUR ---
pt laying in bed watching tv, a/ox3, pleasant and cooperative with care, follows commands well, denies pain or sob, states her night was ok, lungs are clear in [place], dim in bases, resp even and unlabord, no cough noted, is currently on 2 liters 02 via n/c, hrr, tele in place running sr to st per monitor, see strip, no edema noted, ppp+1-2, cap refill <3sec, vs stable, afebrile, iv site is clear and patent, btx4, hypoactive, abd distended but soft, she reports she is voiding without diff, skin c/w/d, maew, juan antonio, call light in reach.
[2020-10-22 08:45] LABS: BASOPHILS ABSOLUTE AUTO 0.05 K/mm3 (0.00-0.23); BASOPHILS PERCENT AUTO 0 % (0-2); EOSINOPHILS ABSOLUTE AUTO 0.09 K/mm3 (0.00-0.68); EOSINOPHILS PERCENT AUTO 0 % (0-6); Hematocrit 31.7 % (33.0-51.0); Hemoglobin 9.5 g/dL (11.5-16.0); Mean Corpuscular HGB 26.7 pg (26.0-34.0); Mean Corpuscular Volume 89 fL (80-100); Mean Platelet Volume 10.6 fL (9.1-12.4); Platelet Count 283 K/mm3 (150-400); RDW Coefficient Variation 17.4 % (11.7-14.2); RDW Standard Deviation 57.1 fL (35.1-46.3); Red Blood Cell Count 3.56 M/mm3 (3.80-5.20); White Blood Cell Count 26.59 K/mm3 (4.00-11.30)
[2020-10-22 08:46] LABS: IMMATURE GRAN ABSOLUTE AUTO 0.18 K/mm3 (0.00-0.10); IMMATURE GRAN PERCENT AUTO 1 % (0-1); LYMPHOCYTES ABSOLUTE AUTO 15.05 K/mm3 (0.84-5.20); LYMPHOCYTES PERCENT AUTO 57 % (21-46); MONOCYTES ABSOLUTE AUTO 0.98 K/mm3 (0.16-1.47); MONOCYTES PERCENT AUTO 4 % (4-13); NEUTROPHILS ABSOLUTE AUTO 10.24 K/mm3 (1.96-9.15); NEUTROPHILS PERCENT AUTO 39 % (41-73)
[2020-10-22 09:04] LABS: Alanine Aminotransfer (ALT/SGP 10 U/L (12-78); Albumin, Blood 2.4 g/dL (3.4-5.0); Albumin/Globulin Ratio 0.6 (0.8-1.8); Alk Phos 104 U/L (50-136); Anion Gap 4 mmol/L (6-16); Aspartate Aminotrans (AST/SGOT 13 U/L (12-37); Bilirubin, Total 0.4 mg/dL (0.1-1.0); Blood Urea Nitrogen 35 mg/dL (8-24); Bun/Creatinine Ratio 52.6 (12.0-20.0); CO2, Blood 31 mmol/L (21-32); Chloride, Blood 108 mmol/L (98-108); Creatinine, Blood 0.67 mg/dL (0.40-1.00); Globulin, Blood 3.9 g/dL (2.2-4.0); Glomerular Filtration Rate >60 (60-); Glucose, Blood 151 mg/dL (70-99); Potassium, Blood 4.1 mmol/L (3.5-5.5); Sodium, Blood 143 mmol/L (136-145); Total Protein, Blood 6.3 g/dL (6.4-8.2)
--- NOTE | 2020-10-22 12:23 | NUR ---
pt has been transfered to medical floor, report was given to Holly RICARDO, she was transfered via wheelchair after legs were wrapped with taz wraps for compression, all belongings went with her.
--- NOTE | 2020-10-22 17:43 | NUR ---
PT HAD CT OF ABD DONE, SHE IS DOING OK, SEEMS FRAIL. NO COMPLAINTS OR NEEDS, NO ACUTE CHANGES THIS SHIFT, CALL LIGHT IN REACH.
--- NOTE | 2020-10-22 20:20 | NUR ---
PT ASKING FOR TYLENOL TO "ASSIST WITH SLEEP." EDUCATED ON XANAX, AND USE FOR ANXIETY - PT REPORTS "THAT'S WHAT I NEED." IV TO L FA INFILTRATED, REMOVED - WNL. BED ALARM ON FOR PATIENT SAFETY. PT PROVIDED WITH PRUNE JUICE, SHE REPORTS SHE HASN'T HAD A BM FOR "2 DAYS." ABDOMEN FIRM, BT'S PRESENT BUT HYPOACTIVE. URINE DARK TEA COLORED. CALL LIGHT WITHIN REACH.
[2020-10-23 04:10] LABS: BASOPHILS ABSOLUTE AUTO 0.04 K/mm3 (0.00-0.23); BASOPHILS PERCENT AUTO 0 % (0-2); EOSINOPHILS ABSOLUTE AUTO 0.09 K/mm3 (0.00-0.68); EOSINOPHILS PERCENT AUTO 0 % (0-6); Hemoglobin 8.9 g/dL (11.5-16.0); Mean Corpuscular HGB 26.3 pg (26.0-34.0); Mean Corpuscular HGB Conc 29.7 g/dL (31.5-36.5); Mean Corpuscular Volume 89 fL (80-100); Mean Platelet Volume 11.5 fL (9.1-12.4); Platelet Count 298 K/mm3 (150-400); RDW Coefficient Variation 17.5 % (11.7-14.2); RDW Standard Deviation 56.2 fL (35.1-46.3); Red Blood Cell Count 3.38 M/mm3 (3.80-5.20); White Blood Cell Count 26.36 K/mm3 (4.00-11.30)
[2020-10-23 04:11] LABS: IMMATURE GRAN ABSOLUTE AUTO 0.21 K/mm3 (0.00-0.10); IMMATURE GRAN PERCENT AUTO 1 % (0-1); LYMPHOCYTES PERCENT AUTO 56 % (21-46); MONOCYTES ABSOLUTE AUTO 1.12 K/mm3 (0.16-1.47); MONOCYTES PERCENT AUTO 4 % (4-13); NEUTROPHILS PERCENT AUTO 38 % (41-73)
[2020-10-23 04:26] LABS: Alanine Aminotransfer (ALT/SGP 7 U/L (12-78); Albumin, Blood 2.3 g/dL (3.4-5.0); Albumin/Globulin Ratio 0.6 (0.8-1.8); Alk Phos 96 U/L (50-136); Anion Gap 3 mmol/L (6-16); Aspartate Aminotrans (AST/SGOT 10 U/L (12-37); Bilirubin, Total 0.3 mg/dL (0.1-1.0); Blood Urea Nitrogen 37 mg/dL (8-24); Bun/Creatinine Ratio 45.8 (12.0-20.0); CO2, Blood 32 mmol/L (21-32); Calcium, Blood 9.2 mg/dL (8.5-10.1); Chloride, Blood 108 mmol/L (98-108); Creatinine, Blood 0.81 mg/dL (0.40-1.00); Globulin, Blood 3.7 g/dL (2.2-4.0); Glomerular Filtration Rate >60 (60-); Glucose, Blood 130 mg/dL (70-99); Potassium, Blood 4.3 mmol/L (3.5-5.5); Sodium, Blood 143 mmol/L (136-145)
--- NOTE | 2020-10-23 06:00 | NUR ---
SHIFT SUMMARY - NO ACUTE CHANGES THROUGHOUT THE NIGHT. PT TOLERATED ABOUT 40 CC OF PRUNE JUICE AND DEVELOPED NAUSEA - MEDICATED WITH ZOFRAN WITH RELIEF. PT SLEPT FOR APPX 6-7 HOURS TONIGHT. PT HAS BEEN UP TO BSC, AND SITTING AT BEDSIDE INDEPENDENTLY, SBA WITH BSC. PAS CURRENTLY OFF PER PT REQUEST - SHE REPORTS THEY "MAKE HER TOO WARM." TEMPERATURE TURNED DOWN IN THE ROOM FOR PATIENT COMFORT. FLUIDS AT BEDSIDE. BED IN LOW POSITION. BED ALARM ON FOR PT SAFETY.
[2020-10-23 08:48] LABS: Hematocrit 31.6 % (33.0-51.0); Hemoglobin 9.4 g/dL (11.5-16.0); Mean Corpuscular HGB 26.3 pg (26.0-34.0); Mean Corpuscular HGB Conc 29.7 g/dL (31.5-36.5); Mean Corpuscular Volume 89 fL (80-100); Mean Platelet Volume 11.8 fL (9.1-12.4); RDW Coefficient Variation 17.5 % (11.7-14.2); Red Blood Cell Count 3.57 M/mm3 (3.80-5.20); White Blood Cell Count 32.87 K/mm3 (4.00-11.30)
[2020-10-23 08:51] LABS: Platelet Count 287 K/mm3 (150-400)
[2020-10-23 09:06] LABS: Alanine Aminotransfer (ALT/SGP 10 U/L (12-78); Albumin, Blood 2.5 g/dL (3.4-5.0); Albumin/Globulin Ratio 0.6 (0.8-1.8); Alk Phos 107 U/L (50-136); Anion Gap 7 mmol/L (6-16); Aspartate Aminotrans (AST/SGOT 11 U/L (12-37); Bilirubin, Total 0.4 mg/dL (0.1-1.0); Blood Urea Nitrogen 38 mg/dL (8-24); Bun/Creatinine Ratio 55.1 (12.0-20.0); CO2, Blood 28 mmol/L (21-32); Calcium, Blood 9.2 mg/dL (8.5-10.1); Chloride, Blood 108 mmol/L (98-108); Creatinine, Blood 0.69 mg/dL (0.40-1.00); Globulin, Blood 4.1 g/dL (2.2-4.0); Glomerular Filtration Rate >60 (60-); Glucose, Blood 133 mg/dL (70-99); Potassium, Blood 4.2 mmol/L (3.5-5.5); Sodium, Blood 143 mmol/L (136-145); Total Protein, Blood 6.6 g/dL (6.4-8.2)
[2020-10-23 09:40] LABS: BASOPHILS PERCENT MAN 0 % (0-2); EOSINOPHILS PERCENT MAN 0 % (0-6); LYMPHOCYTES ABSOLUTE MAN 15.12 K/mm3 (0.84-5.20); LYMPHOCYTES PERCENT MAN 46 % (21-46); MONOCYTES ABSOLUTE MAN 0.98 K/mm3 (0.16-1.47); MONOCYTES PERCENT MAN 3 % (4-13); NEUTROPHILS ABSOLUTE MAN 16.76 K/mm3 (1.96-9.15); SEG NEUTROPHILS PERCENT MAN 51 % (41-73); TOTAL CELLS COUNTED 100
[2020-10-23 14:52] LABS: Automated BF RBC Count 1.228 M/mm3 (0-0); Automated BF WBC Count 8.614 K/mm3 (0-999); Body Fluid WBC Count 8614 /mm3 (0-999); RBC Count, Body Fluid 1228000 /mm3 (0-0)
[2020-10-23 14:55] LABS: Glucose, Body Fluid 82 mg/dL
[2020-10-23 14:57] LABS: pH, Body Fluid 7.9
[2020-10-23 15:00] LABS: Protein, Body Fluid 4.6 g/dL
[2020-10-23 15:54] LABS: Appearance, Body Fluid Bloody (Clear); Color, Body Fluid Red (None-Yellow); Total Cell Count, Body Fluid 100
--- NOTE | 2020-10-23 17:43 | NUR ---
SHIFT SUMMARY PT HAS BEEN UNCOMFORTABLE MOST OF THE DAY, HER BREATHING IS SHALLOW AND SHE REPORTS UNCOMFORTABLE. PT RECEIVED A THORACENTESIS TODAY AND APPROXIMATELY 1L OF FLUID WAS REMOVED WHICH GAVE HER SOME RELIEF. THE PT IS CURRENTLY ON 3L O2. PT HAD LOW BP PRIOR TO THE THORACENTESIS REPORTED BY RADIOLOGY AND THE THORA WAS STILL PERFORMED. WHEN THE PT ARRIVED BACK TO PCU BP WAS LOW AND PT REPORTED BLURRED VISION. PT RECEIVED 1 500ML BOLUS OF NS AND AN ADDITIONAL 25GM OF ALBUMIN. BP IMPROVED DID PT'S VISION PER HER VERBALIZATION. PT DENIES OTHER PAIN AND DISCOMFORT. PT HAS BEEN ABLE TO TRANSFER SBA. PT WAS INFORMED TODAY OF NEW NODULES FOUND WITHIN HER LUNGS AND HAS BEEN REFERRED BACK TO ONCOLOGY UPON DISCHARGE. PT IS RESTING IN BED AT THIS TIME
[2020-10-24 04:23] LABS: BASOPHILS ABSOLUTE AUTO 0.06 K/mm3 (0.00-0.23); BASOPHILS PERCENT AUTO 0 % (0-2); EOSINOPHILS ABSOLUTE AUTO 0.18 K/mm3 (0.00-0.68); EOSINOPHILS PERCENT AUTO 1 % (0-6); Hematocrit 25.9 % (33.0-51.0); Hemoglobin 7.5 g/dL (11.5-16.0); Mean Corpuscular HGB 26.5 pg (26.0-34.0); Mean Corpuscular Volume 92 fL (80-100); Mean Platelet Volume 11.2 fL (9.1-12.4); Platelet Count 292 K/mm3 (150-400); RDW Coefficient Variation 17.6 % (11.7-14.2); RDW Standard Deviation 58.8 fL (35.1-46.3); Red Blood Cell Count 2.83 M/mm3 (3.80-5.20)
[2020-10-24 04:24] LABS: IMMATURE GRAN ABSOLUTE AUTO 0.23 K/mm3 (0.00-0.10); IMMATURE GRAN PERCENT AUTO 1 % (0-1); LYMPHOCYTES ABSOLUTE AUTO 18.23 K/mm3 (0.84-5.20); LYMPHOCYTES PERCENT AUTO 62 % (21-46); MONOCYTES ABSOLUTE AUTO 0.91 K/mm3 (0.16-1.47); MONOCYTES PERCENT AUTO 3 % (4-13); NEUTROPHILS ABSOLUTE AUTO 9.89 K/mm3 (1.96-9.15); NEUTROPHILS PERCENT AUTO 34 % (41-73)
[2020-10-24 04:49] LABS: Alanine Aminotransfer (ALT/SGP 8 U/L (12-78); Albumin/Globulin Ratio 0.9 (0.8-1.8); Alk Phos 88 U/L (50-136); Anion Gap 6 mmol/L (6-16); Aspartate Aminotrans (AST/SGOT 10 U/L (12-37); Bilirubin, Total 0.5 mg/dL (0.1-1.0); Blood Urea Nitrogen 35 mg/dL (8-24); Bun/Creatinine Ratio 48.3 (12.0-20.0); CO2, Blood 28 mmol/L (21-32); Calcium, Blood 9.1 mg/dL (8.5-10.1); Chloride, Blood 110 mmol/L (98-108); Creatinine, Blood 0.73 mg/dL (0.40-1.00); Globulin, Blood 3.5 g/dL (2.2-4.0); Glomerular Filtration Rate >60 (60-); Glucose, Blood 129 mg/dL (70-99); Potassium, Blood 4.3 mmol/L (3.5-5.5); Sodium, Blood 144 mmol/L (136-145); Total Protein, Blood 6.5 g/dL (6.4-8.2)
[2020-10-24 05:26] LABS: BASOPHILS PERCENT MAN 0 % (0-2); EOSINOPHILS PERCENT MAN 0 % (0-6); LYMPHOCYTES ABSOLUTE MAN 14.75 K/mm3 (0.84-5.20); LYMPHOCYTES PERCENT MAN 50 % (21-46); MONOCYTES PERCENT MAN 0 % (4-13); NEUTROPHILS ABSOLUTE MAN 14.75 K/mm3 (1.96-9.15); SEG NEUTROPHILS PERCENT MAN 50 % (41-73); TOTAL CELLS COUNTED 100
--- NOTE | 2020-10-24 07:23 | NUR ---
SHIFT SUMMARY PATIENT PLEASENT AND CHEERFUL LAST NIGHT. PATIENT APPEARED TO SLEEP WELL THROUGHOUT MOST OF THE NIGHT. PATIENT REPORTED THAT SHE FELT LIKE SHE SLEPT VERY WELL LAST NIGHT. PATIENT APPEARED TO BE MOVING SELF AROUND IN BED WELL, PATIENT DECLINED TO HAVE SCD'S PLACED. VITAL SIGNS CHARTED. REPORT GIVEN TO ONCOMING RN.
[2020-10-24 09:32] LABS: Percent Saturation 10.1 % (15.0-50.0)
--- NOTE | 2020-10-24 12:31 | NUR ---
DR. CORNEJO CONSULT PT WAS VISITED BY DR. 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 DR. CORNEJO SUGGESTED TO THE PT THAT SHE HAVE A PLEURAL CATH PLACED TOMORROW TO HELP HER HAVE THE ABILITY TO DRAIN THE FLUID OFF THE LUNGS HERSELF, THEN REQUESTED THAT HE WOULD FOLLOW UP WITH HER OUTPATIENT. DR. CORNEJO EXPLAINED THAT ANY FURTHER TREATMENT FOR THE CANCER WOULD BE PALLIATIVE AND WOULD NOT NECESSARILY BE CURATIVE. HALEIGH MCCORMICK UPDATED DR. KENDRICK WHO ORDERED AND INTIATED A SURGICAL CONSULT FOR THE DRAIN PLACEMENT. PT IS VERBALLY UNDERSTANDING. HALEIGH MCCORMICK OFFERED TO HAVE PALLIATIVE CARE VISIT WITH HER AND HELP HER PLAN AND FILL OUT ANY PROPER PAPERWORK SO THAT HEALTHCARE STAFF CAN FOLLOW HER WISHES. PT REFUSED AT THIS TIME STATING SHE DOESN'T WANT THAT MANY PEOPLE IN HER ROOM THIS AFTERNOON WITH HER VISITORS AND SHE KNOWS WHAT SHE WANTS. PT WOULD BENEFIT FROM FOLLOW UP WITH PALLIATIVE CARE PERHAPS TOMORROW 10/25/20 WHEN THE NEWS OF HER CANCER HAS SETTLED.
--- NOTE | 2020-10-24 18:12 | NUR ---
SHIFT SUMMARY PT MET WITH DR CORNEJO TODAY AND HAS MADE PLANS TO HAVE A PLEUREX DRAIN PLACED TOMORROW PER HIS RECOMMENDATION. DR KENDRICK HAS CONSULTED SURGICAL REGARDING THIS. PT WILL THEN FOLLOW UP OUTPATIENT WITH DR CORNEJO REGARDING FURTHER TREATMENT FOR THE NODULES. IN THE MEANTIME THE PT HAS BEEN FOCUSED ON BREATHING MORE COMFORTABLY AND RESTING. PT WAS ABLE TO VISIT WITH FAMILY TODAY AND HAD A PET OF HER'S COME TO VISIT WHICH SEEMED TO MAKE HER VERY HAPPY. PT IS ALERT AND ORIENTED AND HAS BEEN USING THE BSC NEEDED. PT IS RESTING IN BED AT THIS TIME
--- NOTE | 2020-10-25 05:17 | NUR ---
SHIFT SUMMARY PATIENT PLEASENT THROUGHOUT THE NIGHT. PATIENT APPEARED TO SLEEP WELL ON AND OFF LAST NIGHT. PATIENT HAS BEEN NPO SINCE MIDNIGHT FOR POSSIBLE PLUREX DRAIN PLACEMENT TODAY. VITAL SIGNS CHARTED. PATIENT CURRENTLY APPEARS TO BE SLEEPING, RESPIRATIONS EVEN AND UNLABORED. WILL CONTINUE CURRENT PLAN OF CARE AND REPORT TO ONCOMING RN.
[2020-10-25 08:41] LABS: Hematocrit 26.8 % (33.0-51.0); Hemoglobin 8.1 g/dL (11.5-16.0); Mean Corpuscular HGB 26.2 pg (26.0-34.0); Mean Corpuscular HGB Conc 30.2 g/dL (31.5-36.5); Mean Platelet Volume 11.3 fL (9.1-12.4); Platelet Count 280 K/mm3 (150-400); RDW Coefficient Variation 17.4 % (11.7-14.2); RDW Standard Deviation 55.4 fL (35.1-46.3); Red Blood Cell Count 3.09 M/mm3 (3.80-5.20); White Blood Cell Count 29.82 K/mm3 (4.00-11.30)
[2020-10-25 09:45] LABS: Mean Corpuscular Volume 87 fL (80-100)
[2020-10-25 10:45] LABS: BASOPHILS PERCENT MAN 0 % (0-2); EOSINOPHILS PERCENT MAN 0 % (0-6); LYMPHOCYTES PERCENT MAN 53 % (21-46); MONOCYTES ABSOLUTE MAN 1.19 K/mm3 (0.16-1.47); MONOCYTES PERCENT MAN 4 % (4-13); MYELOCYTE ABSOLUTE MAN 0.29 K/mm3 (0.00-0.00); MYELOCYTE PERCENT MAN 1 % (0-0); NEUTROPHILS ABSOLUTE MAN 12.52 K/mm3 (1.96-9.15); SEG NEUTROPHILS PERCENT MAN 42 % (41-73); TOTAL CELLS COUNTED 100
--- NOTE | 2020-10-25 11:43 | NUR ---
PT ALERT AND ORIENTED X4. ON 3 L O2 VIA NASAL CANNULA SATING ABOVE 94%. DENIES SOB. BUT STATES HER LUNGS ARE FEELING "STUFFY". PLAN FOR PLEURAL CATH PLACEMENT THIS AFTERNOON. PT REMAINED NPO. Q2 TURNING, PT ABLE TO TURN SELF IN BED. RED COCCYX AND SPINEOUS PROCESSES MID BACK, ALLYVEN'S PLACED FOR PREVENTATIVE. CALLING APPROPRIATLY, BED IN LOW LOCKED POSITION. VITAL SIGNS STABLE. WILL CONTINUE TO MONITOR.
--- NOTE | 2020-10-25 11:55 | NUR ---
PT LEFT ROOM FOR PLEURAL CATH PLACEMENT VIA GURNEY.
--- NOTE | 2020-10-25 14:00 | NUR ---
10/25/20 1400 Ruperto Hollins PATIENT ON SCHEDULED ANTIBIOTICS
--- NOTE | 2020-10-25 15:08 | NUR ---
BACK TO ROOM FROM PLEUREX PLACEMENT. DRESSING CLEAN/DRY/INTACT. BLOOD IN TUBING NOTED, NORMAL PER SURGICAL REPORT. PT DENIES PAIN. VITAL SIGNS STABLE. WILL CONTINUE TO MONITOR.
--- NOTE | 2020-10-25 17:44 | NUR ---
SHIFT SUMMARY: PT ALERT AND ORIENTED X4. ON 2 L O2 VIA NC SATING 94-95%. DENIES SOB. NO TELE. DENIES CHEST PAIN/PRESSURE. PLEURX CATH TO LUQ, PT DENIES PAIN. VITAL SIGNS STABLE WITH SOFT BP, MAP OVER 65. 1 PERSON ASSIST WITH FWW TO BSC. SCD REFUSAL. OVERALL PT STATES SHE IS FEELING WEAK. EATING DINNER AND DRINKNING FLUIDS AT THIS TIME. USING CALL LIGHT APPROPRIATLY. BED REMAINS IN LOW LOCKED POSITION. VISITOR LATE AFTERNOON. PT SLEEPING ON AND OFF AFTER PROCEDURE. WILL CONTINUE TO MONITOR AND REPORT OFF.
--- NOTE | 2020-10-26 04:21 | NUR ---
SHIFT SUMMARY A/0 X4. SOFT BP T/O THE NIGHT. PT COMPLAINED OF SORENESS AT THE SITE OF PLEURX CATH. PT RECIEVED TYLENOL PER EMAR TO ALLEVIATE SORENESS. NO DRAINAGE NOTED DURING THIS NURSING STUDENTS SHIFT. DIMINISHED BREATH SOUNDS IN BOTH LUNG [place]. O2 VIA NC @ 3L O2 SATS >92%. REDDNESS ON COCCYX AND SPINE. FOAM DRESSING ON SPINE. PT REMOVED FOAM DRESSING ON COCCYX PT STATED "IT WAS BOTHERING ME".
[2020-10-26 04:29] LABS: BASOPHILS ABSOLUTE AUTO 0.05 K/mm3 (0.00-0.23); BASOPHILS PERCENT AUTO 0 % (0-2); EOSINOPHILS ABSOLUTE AUTO 0.11 K/mm3 (0.00-0.68); EOSINOPHILS PERCENT AUTO 0 % (0-6); Hematocrit 24.1 % (33.0-51.0); Hemoglobin 7.1 g/dL (11.5-16.0); Mean Corpuscular HGB 26.7 pg (26.0-34.0); Mean Corpuscular HGB Conc 29.5 g/dL (31.5-36.5); Mean Corpuscular Volume 91 fL (80-100); Mean Platelet Volume 11.6 fL (9.1-12.4); Platelet Count 327 K/mm3 (150-400); RDW Coefficient Variation 17.8 % (11.7-14.2); RDW Standard Deviation 58.1 fL (35.1-46.3); Red Blood Cell Count 2.66 M/mm3 (3.80-5.20); White Blood Cell Count 29.79 K/mm3 (4.00-11.30)
[2020-10-26 04:38] LABS: IMMATURE GRAN PERCENT AUTO 1 % (0-1); LYMPHOCYTES ABSOLUTE AUTO 17.96 K/mm3 (0.84-5.20); LYMPHOCYTES PERCENT AUTO 60 % (21-46); MONOCYTES ABSOLUTE AUTO 0.93 K/mm3 (0.16-1.47); MONOCYTES PERCENT AUTO 3 % (4-13); NEUTROPHILS ABSOLUTE AUTO 10.54 K/mm3 (1.96-9.15); NEUTROPHILS PERCENT AUTO 35 % (41-73)
[2020-10-26 11:00] LABS: Hematocrit 27.3 % (33.0-51.0); Hemoglobin 8.2 g/dL (11.5-16.0)
--- NOTE | 2020-10-26 11:08 | NUR ---
Met with pt to teach PleurX draining to pt. She was initially hesitant, but after watching an instructional video, I encouraged pt to practice accessing and handling the sample pleurX drain. She began to engage, and used the sample drainage system, including changing the dressing on the prop chest wall. She also initially answered, "No, I don't think so". When I asked if she had anyone available to help with managing this drain, besides Home Health. She is also now agreeable for this RN to instruct/teach her roommate on use of pleurx, as well. HALEIGH Bennett for pt will call when pt's roommate arrives.
[2020-10-26] MEDS ORDERED: METO50ER PO (12:13)
[2020-10-26] MEDS ORDERED: LOSA25 PO (12:14)
[2020-10-26] MEDS ORDERED: ALPR.25 PO (12:15)
[2020-10-26] MEDS ORDERED: ACET325 PO (12:15)
--- NOTE | 2020-10-26 15:26 | NUR ---
PT DISCHARGE TO HOME TODAY WITH HOME HEALTH ORDERS FOR PLEURACATH MANAGEMENT. NO ACUTE CHANGE FOR THE SHIFT, PT WAS TITRATED TO ROOMAIR SATS REMAINED ABOVE 90%, HAS MILD SOB WITH EXERTION. PALLIATIVE CARE NURSE VANNESA RICARDO CAME IN TO INSTRUCT PT ABOUT PLEURACATH SHOWED SOME VIDEOS AND APPS WELL, PT VERBALIZED UNDERSTANDING, WAS ALSO INFORMED THAT THE HOME HEALTH NURSE WILL CALL TOMORROW AND COME BY TO DRAIN HER PLEURACATH AND GO OVER WITH HER FRIEND/ROOMMATE AGAIN FOR MORE EDUCATION AND INSTRUCTIONS. FRIENDS RANDALL CAME IN TO NURSE INFORMATICS EDUCATOR PT AND PROVIDE TRANSPORTATION, NEW MEDICATION AND FF-UP APPT DISCLOSED WITH THE PT, ALL BELONGINGS SENT WITH THE PT ALSO SENT A NEW WRITTENT PRESCRIPTION FOR XANAX, A BOX OF PLEURACATH DRAIN SYSTEM SENT WELL. PT ACCOMPANIED VIA WHEELCHAIR FOR TRANSPORT
== END 2020-10-26 14:35 | disposition home health service (06) | DRG 374 ==
LOC: ER 12:27 → PCU 18:15
PROVIDERS: Emergency Medicine; Internal Medicine; Nurse Practitioner Acute Care; ADMIT Hospitalist
PROC: 0W9B3ZZ Drainage of Left Pleural Cavity, Percutaneous Approach (ICD-10-PCS; principal; 2020-10-20)
PROC: 0W9G3ZZ Drainage of Peritoneal Cavity, Percutaneous Approach (ICD-10-PCS; 2020-10-21)
PROC: 0W9B3ZZ Drainage of Left Pleural Cavity, Percutaneous Approach (ICD-10-PCS; 2020-10-23)
PROC: 0W9B30Z Drainage of Left Pleural Cavity with Drainage Device, Percutaneous Approach (ICD-10-PCS; 2020-10-25)
DX: C16.9 Malignant neoplasm of stomach, unspecified (principal); J96.01 Acute respiratory failure with hypoxia; J91.0 Malignant pleural effusion; C91.10 Chronic lymphocytic leukemia of B-cell type not having achieved remission; R18.0 Malignant ascites; K21.9 Gastro-esophageal reflux disease without esophagitis; D63.0 Anemia in neoplastic disease; F41.9 Anxiety disorder, unspecified; Z90.49 Acquired absence of other specified parts of digestive tract; E78.5 Hyperlipidemia, unspecified; M19.90 Unspecified osteoarthritis, unspecified site; Z96.643 Presence of artificial hip joint, bilateral; Z98.890 Other specified postprocedural states; Z88.5 Allergy status to narcotic agent; Z88.8 Allergy status to other drugs, medicaments and biological substances; Z79.899 Other long term (current) drug therapy; I50.9 Heart failure, unspecified; I11.0 Hypertensive heart disease with heart failure; Z20.822 Contact with and (suspected) exposure to COVID-19; E87.6 Hypokalemia
CPT/HCPCS: 0241U; 32555; 36415; 49083; 51701; 71045; 71250; 74176; 80048; 80053; 82042; 82150; 82728; 82945; 83540; 83550; 83605; 83615; 83735; 83880; 83986; 84100; 84145; 84157; 84478; 84484; 85014; 85018; 85025; 85610; 85651; 85730; 86140; 87040; 87070; 87205; 88108; 88305; 88341; 88342; 89051; 93005; 93010; 93306; 93308; 93321; 94660; 94762; 96365; 97110; 97162; 99285-25; A9270; A9270-GY; J0696; J1940; J2250; J2405; J2543; J2704; J3010; J3370; J7040; J7120; P9041; P9046

== ENCOUNTER 2020-10-30 08:45 | Day surgery (SDC) | payer MEDICARE ==
[~2020-10-30 08:45] MED LIST changes: +ALPR.25 PO; +LOSA25 PO; +PRED1 PO
--- NOTE | 2020-10-30 15:32 | NUR ---
DR CORNEJO WAS NOTIFIED OF PTS INITIAL BP, 2ND L OF NS ORDERED AND GIVEN. REPEAT BP SHOWS IMPROVEMENT.
== END 2020-10-30 16:03 | disposition home or self-care (01) ==
LOC: ATC 08:45
DX: E86.0 Dehydration (principal); C16.2 Malignant neoplasm of body of stomach; C77.2 Secondary and unspecified malignant neoplasm of intra-abdominal lymph nodes; I10 Essential (primary) hypertension; E78.5 Hyperlipidemia, unspecified; Z90.49 Acquired absence of other specified parts of digestive tract; Z96.643 Presence of artificial hip joint, bilateral
CPT/HCPCS: J1642; J7030